=== PATIENT | male | born 1985 ===

== ENCOUNTER 2023-06-18 14:43 | Emergency (ER) | payer SELFPAY ==
[~2023-06-18] VITALS: Ht 175.3 cm; Wt 93.0 kg
[2023-06-18 15:05] VITALS: BP 124/78; PULSE 109; RESP 16; TEMP 98.3
== END 2023-06-18 15:42 | disposition left against medical advice (07) ==
LOC: EMS 14:44
DX: Z53.21 Procedure and treatment not carried out due to patient leaving prior to being seen by health care provider (principal)
CPT/HCPCS: 99281; Z7502